=== PATIENT | male | born 1970 | race Caucasian/White ===

== ENCOUNTER 2020-12-06 11:41 | Emergency (ER) | payer SELFPAY ==
[~2020-12-06] VITALS: Ht 190.5 cm; Wt 85.6 kg
[2020-12-06 12:23] VITALS: BP 111/79
[2020-12-06] MEDS ORDERED: TETanus/Pertussis (Acell)/Diphther VAC/PF (Tdap-Adult) 0.5ml syringe IMVAC ONE (14:35)
[2020-12-06] MEDS ORDERED: LIDOcaine 1% W/epiNEPHrine 1:200,000 10ml vial IJ ONE (14:35)
[2020-12-06] MEDS ORDERED: DOXY100C43 PO (15:36)
[2020-12-06] MEDS ORDERED: HYDR-3965 PO (15:52)
== END 2020-12-06 16:17 | disposition home or self-care (01) ==
LOC: ER 11:42
DX: L03.011 Cellulitis of right finger (principal); L02.511 Cutaneous abscess of right hand; M79.641 Pain in right hand; Z20.3 Contact with and (suspected) exposure to rabies; Z79.2 Long term (current) use of antibiotics
CPT/HCPCS: 26010; 87070; 87077; 87186; 90471; 90715; 99283